=== PATIENT | male | born 1940 | race Caucasian/White ===

== ENCOUNTER 2016-08-21 02:31 | Inpatient (IN) | payer MEDICARE ==
[2016-08-21] VITALS (11 sets, daily range): BP systolic 117–141; BP diastolic 71–82; PULSE 118–136; RESP 14–22; O2SAT 95–98
[~2016-08-21] VITALS: Ht 170.2 cm; Wt 85.2 kg
[2016-08-21] MEDS ORDERED: Alum-Mag Hydrox-Simeth 30 mL Suspension PO PRN (04:20)
[2016-08-21] MEDS ORDERED: Glucose 40% Oral Gel 15 Gm Tube PO PRN (04:20)
[2016-08-21] MEDS ORDERED: Polyethylene Glycol (PEG) 17 Gm Powder PO PRN (04:20)
--- NOTE | 2016-08-21 04:34 | PCM.HPMED ---
Subjective Date of Service Aug 21, 2016 Primary Provider: Admitting Physician: Rodrigo Patterson MD Primary Care Physician: Harpreet Attending Physician: Rodrigo Patterson MD Admit Status: From the Emergency Department Chief Complaint: Presyncope History of Present Illness: This is a 76-year-old male with past history significant for coronary artery disease status post CABG in 1997, hyperlipidemia, hypertension, myelodysplastic syndrome with planned start date of chemo on August 27, and diabetes mellitus type II who presents as a direct transfer from [facility] after a presyncopal episode.. The patient states that this evening he was visiting his who was admitted to [facility]. While sitting in a chair he began to feel lightheaded, and became diaphoretic. He states this is the second times this has occurred over the last 2 weeks. ER notes states that his eyes rolled back in his head and he had a presyncopal event. Associated symptoms: Nausea. He denies any loss of consciousness. He denies any chest pain or pressure, shortness of breath, vomiting, dysuria, hematuria, increased urinary frequency, Initial vitals at [facility] BP 151/58, heart rate 118, respiratory rate 22, satting 94% on room air, temperature 98.3 Fahrenheit. Initial laboratory values from [facility]: WBC 5.3, hemoglobin 8.2 , hematocrit 26.4, MCV 72. D-dimer was 10.88. BNP 322. Glucose 140, BUN 20, creatinine 1.3, sodium 136, potassium 4.1, chloride 99, carbon dioxide 21, calcium 8.6, total protein 9.8, albumin 2.7, total bilirubin 0.6, alkaline phosphatase 51, AST 28, ALT 22, CPK 331, magnesium 1.6, CK-MB 1.7, troponin I 1.13 with a normal reference range of 0.00-1.5 . An ABG was performed at [facility] due to transient hypoxia which showed a pH of 7.42, PCO2 of 30.5, PO2 of 135, HCO3 of 19.9. Urinalysis showed positive nitrites, 2 + blood, positive leukocyte esterase, WBCs of 15-25, and many bacteria. EKG showed sinus tachycardia with rate of 115, possible left atrial enlargement , possible inferior infarct of indeterminate age, and ST depression in leads V3 , V4, V5, and V6. Chest x-ray was described as no acute disease. CT angio was performed and showed no pulmonary embolus. The images are not available for review at this time and verbal reports of these images were provided to me by the emergency department physician as the written reports were not included in the chart received from [facility]. Repeat laboratory testing at [facility] showed a hemoglobin of 7.0 , hematocrit of 24.7, platelet count of 23. Lactic acid of 3.7. Magnesium of 1.5. Troponin of 0.037. In the ED at [facility] he was provided with a bolus of normal saline and given 1 g of ceftriaxone for a urinary tract infection. Review of Systems: A comprehensive review of systems was conducted with the patient and found to be negative except as above in the History of Present Illness. Allergies Coded Allergies: No Known Allergies (Unverified , 08/21/16) verified Home Medications Aspirin Atorvastatin Levothyroxine Metformin Metoprolol Patient's pharmacy will need to be contacted in the morning for medication list. PMH Diabetes mellitus type II Hyperlipidemia Hypertension Hypothyroidism Coronary artery disease status post CABG Mild dysplastic syndrome starting chemotherapy on August 27 Previous myocardial infarction Surgical History Coronary artery bypass graft Family History Father: Coronary artery disease. Mother: Coronary artery disease. Social History Hx Alcohol Use: No Hx Substance Use: No Hx Tobacco Use: No (quit 45 years ago) Exam Vital Signs Vital Sign - Last Date Time Temp Pulse Resp B/P Pulse Ox O2 Delivery O2 Flow Rate FiO2 08/21/16 03:50 36.6 136 22 117/76 97 Nasal Cannula 2.00 Exam General: No acute distress, appropriately interactive HEENT: Normocephalic, atraumatic. External ears without defect. Pupils equal, round, and reactive to light and accommodation. Anicteric sclerae, moist conjunctivae, and no lid lag. Oropharynx free of erythema and cobble stoning with moist mucosa. Neck: Supple with full range of motion. No jugular venous distension. No bruits. No lymphadenopathy or thyromegaly. Cardiovascular: Regular rate and rhythm with no murmurs, rubs, or gallops appreciated Pulmonary: Clear to auscultation bilaterally with no crackles, wheezes, or rhonchi. Normal respiratory effort with no use of accessory muscles. Abdomen: Bowel tones present. Soft, nontender, nondistended. No hepatosplenomegaly or masses appreciated. Extremities: Trace edema of lower extremity bilaterally. Skin: Normal temperature, turgor, and texture; no rash, ulcers, or subcutaneous nodules appreciated. Neurological: Cranial nerves grossly intact. Normal muscle strength, tone, and bulk. Reflexes, coordination, and sensory function within normal limits. No known gait impairment. Normal heel to paul test bilaterally. No upper or lower extremity drift. Psychiatric: Normal mood and affect. Alert and oriented to person, place, and time. Assessment & Plan This is a 76-year-old male with past medical history significant for coronary disease status post CABG, hypertension, hyperlipidemia, myelodysplastic syndrome , and diabetes mellitus type II who initially presented for a presyncopal event and indeterminate troponins. He also was experiencing some shortness of breath and required oxygen by nasal cannula while at [facility]. He was subsequently found to have a hemoglobin of 7 on repeat laboratory tests in our hospital and blood transfusion is now underway. The severe anemia is likely secondary to the myelodysplastic syndrome. The patient also has a urinalysis that indicates a urinary tract infection and meets sepsis criteria with a lactic acid of 3.7 and procalcitonin of .44. He is now status post 2 L normal saline. It should be noted, that originally the patient was signed out to our team due to indeterminate troponins with an EKG that showed ST depression in V3 , V4, V5, and V6. Sepsis, present on admission, ongoing: -Sepsis criteria met with respiratory rate of 22, heart rate of 118, PCO2 < 35, with source of urine. -Patient was given ceftriaxone at [facility]. From my review of the records blood cultures were not drawn before this was given. -Blood cultures ordered (dose of Ceftriaxone given at [facility] before cultures were drawn). -Lactic acid 3.7. A second liter of NS will be provided. Urinary tract infection, present on admission, ongoing: -Patient describes no symptoms of urinary tract infection. He denies any dysuria, hematuria, increased urinary frequency. -Urinalysis showed positive nitrites, 2+ blood, positive leukocyte esterase, WBCs of 15-25, and many bacteria. -Day team will need to follow-up with urine culture at [facility]. Another urinalysis was ordered here but this is after Ceftriaxone given. -Will continue ceftriaxone. Severe microcytic anemia, present on admission: -On admit hemoglobin 7, hematocrit 24.7, MCV 77.4. -Likely secondary to myelodysplastic syndrome. -Two units will be transfused. Elevated troponins, present on admission, ongoing: -Troponin on admit .037. -Continue to trend troponins x3. -Dr. Merino of cardiology was contacted last evening concerning inderminate troponins at [facility]. -Consider cardiology consult. Presyncopal event, present on admission, stable: -Uncertain etiology. Differential includes hypoglycemia, electronic disturbance , orthostatic hypotension, cardiogenic including arrhythmia and ischemia, CVA, pulmonary embolus, severe anemia/hypovolemia. CT angiogram at [facility] was reported as having no pulmonary embolus by the emergency room physician. -Will trend troponins. Dr. Merino cardiology was contacted and agreed with trending. -Patient on telemetry -Echocardiogram ordered -Orthostatics pending. -Nursing to complete q2h neuro checks. -Day team can consider brain imaging including MRI. Myelodysplastic syndrome, present on admission: -Patients oncologist is at [facility]. -Consider oncology referral. Hypomagnesemia, present on admission, ongoing: -Mag on admit 1.5. -Mag replacement provided. Diabetes mellitus type II, present on admission: -A1c is pending -Humalog low-dose correctional scale -Continue metformin Hypertension, present on admission: -On admit at scheduled for a hospital blood pressure was 117/76. -Continue metoprolol tartrate. Hyperlipidemia, present on admission: -Continue atorvastatin. Hypothyroidism, present on admission: -TSH and free T4 pending DVT prophylaxis with heparin. Patient is admitted under inpatient status with expected length of stay greater than 2 midnights due to severity of presenting symptoms, risk of adverse event, and complexity of treatment plan. Pain Evaluation: Adequate Pain Control Resuscitation Status: DNR/DNI:Do Not Resuscitate/Intubate Attending Statement The patient was seen and examined together with Dr. Mascorro on 08/21 and I agree with the history, exam and plan as outlined in the note above. Mundo Mascorro DO Aug 21, 2016 04:34 Rodrigo Patterson MD Aug 21, 2016 19:12
[2016-08-21] MEDS ORDERED: Dextrose 10% 250 ML IV PRN (04:35)
[2016-08-21 05:11] LABS: BASOPHILS % (AUTO) 0.9 % (0-3); EOSINOPHILS % (AUTO) 0.2 % (0-5); MONOCYTES % (AUTO) 23.6 % (4-12); Mean Corpuscular Hemoglobin 21.9 pg (27.0-35.0); Mean Corpuscular Volume 77.4 fL (81-100); NEUTROPHILS % (AUTO) 31.6 % (40-74)
[2016-08-21 05:42] LABS: Platelet Count 23 bil/L (150-400)
[2016-08-21 06:00] LABS: Magnesium 1.5 mg/dL (1.6-2.6)
[2016-08-21] MEDS ORDERED: 0.9% Sodium Chloride 1,000 ML IV ONE (06:00)
[2016-08-21 06:01] LABS: TROPONIN T 0.037 ug/L (0.0-0.011)
[2016-08-21] MEDS ORDERED: Magnesium Sulf 2 Gm/50mL Water 2 GM in IV Premix 1 EACH IV ONE (06:20)
[2016-08-21 06:29] LABS: APPEARANCE,URINE CLEAR (CLEAR,HAZY); COLOR,URINE YELLOW (YELLOW); OCCULT BLOOD,URINE MODERATE (NEGATIVE); PH,URINE 5.5 (5.0-8.0); UROBILINOGEN,URINE NORMAL (NORMAL)
--- NOTE | 2016-08-21 06:46 | NUR ---
admit from [facility], am labs pt received from [facility] at 0345, admit info done per pt hx info, pt a/o times three, reji, neuros wnl, pt voiding sml amount of yellow uop per f/c frequently, pt getting sob with exertion when having to sit at side of bed to void, urine spec sent to lab, pt had medium size bm upon admit, bm was light brown, abd round/snt, denies n/v, hyper active bt's, tele- st hr 130's upon admit, 120's at rest, bp stable, afebrile, md aware pt tachycardic, ls- clear/sl decreased, 2 liters o2 on per nc, sats upper 90's, sob with exertion, resident in to see pt and do admit, resident aware of pt assessment/tele/pt's history per admit info/am lab results, see orders, ivf one liter ns bolus given, mg rider started, lab has drawn for t/c two units rbc's, signed blood consent on chart, pt aware to have family bring in his cpap machine and med list from home, pt states he uses [facility] in [place] for his pharmacy, note left with UA to contact on day shift, pt spoke with resident about being a dnr/dni for resuscitation order, see assessment and admit charting, report to day shift rn for hh, 2 units of blood to be given, post transfusion labs, and f/u lactic levels after ns bolus given, Addendum: 08/21/16 at 0726 by GABINO KENNEY RN lab still working on preparing two units of blood,
[2016-08-21] MEDS ORDERED: LEVO25TA73 PO (07:28)
[2016-08-21] MEDS ORDERED: METO25TA6 PO (07:28)
[2016-08-21] MEDS ORDERED: ASPI-973 PO (07:34)
[2016-08-21] MEDS ORDERED: METF500T4 PO (07:34)
[2016-08-21] MEDS ORDERED: ATRV10T PO (07:34)
[2016-08-21] MEDS: Insulin LISPRO 300 Unit/3 mL Inj SUBQ SCH ×4 (08:00→21:50)
[2016-08-21] MEDS: 0.9% Sodium Chloride 250 ML IV SCH (08:21)
[2016-08-21] MEDS: Heparin 5,000 Unit/mL Inj SUBQ SCH ×2 (08:30→16:30)
--- NOTE | 2016-08-21 11:07 | DRSVH ---
[facility] [address] [place] [address] Echocardiogram Report Name: HARRIETT MAYBERRY KStudy Date : 08/21/2016 Height: 6 7 in Hospital Exam Location: [facility] Weight: 1 90 lb Gender: Male BSA: 2.0 m2 : 1940 Age: 76 yrs BP: 117/7 6 mmHg Reason For Study: Pre-Syncope Ordering Physician: HOSPITALIST [facility] Performed By: Madhu Martinez Referring Physician: WILLIAM SOTOMAYOR Interpretation Summary The left ventricle is normal in size. The ejection fraction is estimated to be 40-45%. There is mild global hypokinesis of the left ventricle. There is basal inferior wall severe hypokinesis. There is basal posterolateral wall hypokinesis. The right ventricle grossly appears normal in size with probable normal systolic function. There is moderate mitral regurgitation. The ascending aorta is mildly enlarged. The patient was in sinus tachycardia with heart rates between 115-130 bpm during the exam. Procedure: A two-dimensional transthoracic echocardiogram with color flow and Doppler was performed. The study quality was technically adequate. There is no prior echocardiogram noted for this patient. A contrast injection of Definity was performed to improve assessment of LV function. The patient was in sinus tachycardia with heart rates between 115-130 bpm during the exam. Left Ventricle: The left ventricle is normal in size. There is normal left ventricular wall thickness. There is no thrombus. The ejection fraction is estimated to be 40-45%. There is mild global hypokinesis of the left ventricle. There is basal inferior wall severe hypokinesis. There is basal posterolateral wall hypokinesis. Diastolic function could not be accurately assessed due to tachycardia. Right Ventricle: The right ventricle grossly appears normal in size with probable normal systolic function. Atria: Borderline left atrial enlargement. Right atrial size is normal. The interatrial septum is intact with no evidence for an atrial septal defect. Mitral Valve: The mitral valve leaflets appear borderline thickened, but open well. The mitral valve leaflets are mildly calcified. There is mild mitral annular calcification. The tip of the mitral leaflet is calcified. There is moderate mitral regurgitation. Aortic Valve: The aortic valve is trileaflet. There is mild aortic valve sclerosis. There is no aortic valve stenosis. No aortic regurgitation is present. Tricuspid Valve: The tricuspid valve is not well visualized, but is grossly normal. There is trace tricuspid regurgitation. Pulmonary artery pressures cannot be estimated because of the lack of a measurable TR jet velocity. Pulmonic Valve: The pulmonic valve leaflets are thin and pliable; valve motion is normal. There is trace pulmonic regurgitation. Great Vessels: The aortic root is normal size. The ascending aorta is mildly enlarged. The pulmonary artery is normal size. The IVC is of normal diameter and collapses greater than 50% with a sniff. This suggests a low right atrial pressure of 3 mm Hg. Pericardium/ Pleura There is no pericardial effusion. There is an anterior echo-free space consistent with a fat pad. There is no pleural effusion. MMode/2D Measurements & Calculations LVIDd: 5.0 cm RA long axis: 4.6 cm LVOT diam: 2.0 cm LVIDs: 4.2 cm LA A2 area: 19.0 cm AoV Opening FS: 15.1 % LA A4 area: 22.8 cm RA area: 11.2 cm EPSS: 1.0 cm LA length (vol) RA vol: 23.2 ml Ao root diam IVSd: 0.85 cm RA : 11.7 ml/m2 LVPWd: 1.0 cm LA vol: 62.8 ml asc Aorta Diam LA vol index Ao Arch Diam (Prox Trans): 2.4 cm IVC diam: 1.7 cm EDV(MOD-sp2) LV nick. diameter/BSA LV sys. diameter/BSA (cm/m^2): 2.5 (cm/m^2): 2.1 ESV(MOD-sp2) EF(MOD-sp2) Doppler Measurements & Calculations Ao V2 max Lat Peak E' Farzad PA V2 max : 187.1 cm/sec MVA(VTI): 3.9 cm2: 10.0 cm/sec : 114.2 cm/sec Ao max P.0 mmHg PA mean PG Ao mean P.7 mmHg : 3.2 mmHg LVOT Max Farzad : 159.5 cm/sec PALLAVI(I,D): 2.8 cm sev ratio: 0.89 MV V2 mean Ao V2 mean LV V1 max PG PA V2 mean : 105.3 cm/sec : 142.4 cm/sec : 85.2 cm/sec MV mean P.7 mmHg Ao V2 VTI LV V1 VTI: 24.9 cm PA pr(Accel) MV V2 VTI: 20.1 cm : 54.1 mmHg PALLAVI(V,D): 2.7 cm2 PALLAVI indexed to BSA (cm^2/m^2): 1.4 Reading Physician:HIWOT
[2016-08-21] MEDS ORDERED: BENZ100C8 PO (11:48)
[2016-08-21] MEDS ORDERED: AMOX500C2 PO (12:01)
[2016-08-21] MEDS ORDERED: DOXY100C2 PO (12:01)
[2016-08-21] MEDS ORDERED: OMEP20CA11 PO (12:01)
[2016-08-21] MEDS ORDERED: RANI150C4 PO (12:06)
[2016-08-21] MEDS ORDERED: AMOX-366 PO (12:06)
[2016-08-21] MEDS ORDERED: HYDR-4003 PO (12:06)
[2016-08-21] MEDS ORDERED: TAMS0.4C98 PO (12:06)
[2016-08-21] MEDS ORDERED: AMLO10TA3 PO (12:06)
--- NOTE | 2016-08-21 13:30 | PCM.PNMED ---
Subjective Date of Service Aug 21, 2016 Subjective He is comfortable, denies chest pain or dyspnea. No nausea. No recent rectal bleeding. He is currently receiving a 2 unit blood transfusion. No overnight events. Patient's ECG is notable for lateral ST depressions. Exam Vital Signs Vital Sign - Last Date Time Temp Pulse Resp B/P Pulse Ox O2 Delivery O2 Flow Rate FiO2 08/21/16 13:07 36.9 08/21/16 12:22 128 18 141/82 96 08/21/16 08:56 Nasal Cannula 2.00 Intake and Output 08/20/16 08/20/16 08/21/16 Cumulative From/Thru 15:00 23:00 07:00 08/21/16 03:45 - 08/21/16 06:29 Intake Total 340 ml 340 ml Output Total 275 ml 275 ml Balance 65 ml 65 ml Intake Oral 240 ml 240 ml IV Total 100 ml 100 ml Output Urine Total 275 ml 275 ml # Bowel Movements 1 1 Exam Alert and oriented -3, no distress. Fluent speech Anicteric sclera. Lungs are clear with normal rate and effort Heart is regular without murmur gallop or rub Abdomen soft nontender, flat Extremities are free of edema. Skin is free of rash or lesions. IVs and Medications Medications Reviewed: Medications were reviewed in detail Lab and Diagnostics Result Diagram: 08/21/16 0625 08/21/16 0500 Assessment & Plan This is a 76-year-old male with past medical history significant for coronary disease status post CABG, hypertension, hyperlipidemia, myelodysplastic syndrome , and diabetes mellitus type II who initially presented for a presyncopal event and indeterminate troponins. He also was experiencing some shortness of breath and required oxygen by nasal cannula while at [facility]. He was subsequently found to have a hemoglobin of 7 on repeat laboratory tests in our hospital and blood transfusion is now underway. The severe anemia is likely secondary to the myelodysplastic syndrome. The patient also has a urinalysis that indicates a urinary tract infection and meets sepsis criteria with a lactic acid of 3.7 and procalcitonin of .44. He is now status post 2 L normal saline. It should be noted, that originally the patient was signed out to our team due to indeterminate troponins with an EKG that showed ST depression in V3 , V4, V5, and V6. Sepsis, present on admission, ongoing. And improving. Source is urinary tract infection. -Sepsis criteria met with respiratory rate of 22, heart rate of 118, PCO2 < 35, with source of urine. -Patient was given ceftriaxone at [facility]. From my review of the records blood cultures were not drawn before this was given. -Blood cultures ordered (dose of Ceftriaxone given at [facility] before cultures were drawn). -Lactic acid 3.7. A second liter of NS will be provided. Urinary tract infection, present on admission, ongoing: -Patient describes no symptoms of urinary tract infection. He denies any dysuria, hematuria, increased urinary frequency. -Urinalysis showed positive nitrites, 2+ blood, positive leukocyte esterase, WBCs of 15-25, and many bacteria. -Day team will need to follow-up with urine culture at [facility]. Another urinalysis was ordered here but this is after Ceftriaxone given. -Will continue ceftriaxone. Severe microcytic anemia, present on admission: Presumed secondary to MDS, no evidence of GI bleed -On admit hemoglobin 7, hematocrit 24.7, MCV 77.4. -Likely secondary to myelodysplastic syndrome. -Two units will be transfused. Elevated troponins, present on admission, ongoing: This could represent demand ischemia. -Troponin on admit .037. -Continue to trend troponins x3. -Dr. Merino of cardiology was contacted last evening concerning inderminate troponins at [facility]. -Consider cardiology consult, will continue aspirin and low-dose beta estuardo. No heparin drip given thrombocytopenia. Chronic thrombocytopenia, POA. We will follow carefully and avoid contraindicated medications.. Presyncopal event, present on admission, stable: This is likely related to anemia. -Uncertain etiology. Differential includes hypoglycemia, electronic disturbance , orthostatic hypotension, cardiogenic including arrhythmia and ischemia, CVA, pulmonary embolus, severe anemia/hypovolemia. CT angiogram at [facility] was reported as having no pulmonary embolus by the emergency room physician. -Will trend troponins. Dr. Merino cardiology was contacted and agreed with trending. -Patient on telemetry -Echocardiogram ordered -Orthostatics pending. -Nursing to complete q2h neuro checks. -Day team can consider brain imaging including MRI. Myelodysplastic syndrome, present on admission: Stable. -Patients oncologist is at [facility]. -Consider oncology referral. Hypomagnesemia, present on admission, repleted.: -Mag on admit 1.5. -Mag replacement provided. Diabetes mellitus type II, present on admission: -A1c is pending -Humalog low-dose correctional scale -Discontinue metformin and use Lantus and correctional lispro Hypertension, present on admission: This is stable. -On admit at scheduled for a hospital blood pressure was 117/76. -Continue metoprolol tartrate. Hyperlipidemia, present on admission: Stable. -Continue atorvastatin. Hypothyroidism, present on admission: Stable. -TSH and free T4 pending DVT prophylaxis with heparin. Patient is admitted under inpatient status with expected length of stay greater than 2 midnights due to severity of presenting symptoms, risk of adverse event, and complexity of treatment plan. Patient is not a candidate for heparin or PCI given profound thrombocytopenia. Will attempt to maximaize medical therapy without causing harm , including maintaining hct over 37. Resuscitation Status: DNR/DNI:Do Not Resuscitate/Intubate Judd Gee MD Aug 21, 2016 13:30
--- NOTE | 2016-08-21 14:34 | NUR ---
Case Management: IMM given and explained to pt. Loni HADLEYRN
[2016-08-21] MEDS: cefTRIAXone Inj 1,000 MG in Dextrose 5% Minibag Plus 50 ML IV SCH (16:15)
[2016-08-21] MEDS ORDERED: cefTRIAXone Inj 1,000 MG in Dextrose 5% Minibag Plus 50 ML IV SCH (18:00)
--- NOTE | 2016-08-21 18:46 | NUR ---
Pain Pt complaining of chest pain at the beginning of the shift. He reported it as "dull pressure" on the L side of his chest "3/10" in intensity. He reported it did not radiate. No diaphoresis. Denied nausea. EKG was ordered. MD was notified of results and symptoms. PO aspirin given x1. Pt reported chest pain resolved about 15 mins after onset. He denied chest pain for the remainder of the shift. He complained of a headache and was given IV morphine x1, pt only reported short term results from that and then his headache came back "5/10". Declined to take hydrocodone/acetaminophen. Continue to monitor.
[2016-08-21] MEDS: 0.9% Sodium Chloride 1,000 ML IV SCH (20:16)
[2016-08-22] VITALS (11 sets, daily range): BP systolic 108–141; BP diastolic 66–89; PULSE 92–144; RESP 18–30; O2SAT 95–96
[2016-08-22] MEDS ORDERED: Heparin 5,000 Unit/mL Inj SUBQ SCH (00:30)
[2016-08-22 05:35] LABS: Mean Corpuscular Hemoglobin 24.2 pg (27.0-35.0); Mean Corpuscular Volume 77.6 fL (81-100)
[2016-08-22] MEDS: 0.9% Sodium Chloride 250 ML IV SCH (06:05)
[2016-08-22] MEDS: 0.9% Sodium Chloride 1,000 ML IV SCH (06:31)
--- NOTE | 2016-08-22 06:44 | NUR ---
Headache Pt c/o consistent and persistent headache pain up to 6/10 pain. Medicated Q4 with morphine. Dr Patterson made aware, additional orders received for tylenol. administered as well. Headache continues each time medication wears off per pt.
[2016-08-22] MEDS: Insulin LISPRO 300 Unit/3 mL Inj SUBQ SCH ×4 (07:45→20:17)
[2016-08-22] MEDS: cefTRIAXone Inj 1,000 MG in Dextrose 5% Minibag Plus 50 ML IV SCH (09:00)
--- NOTE | 2016-08-22 09:04 | PCM.PNMED ---
Subjective Date of Service Aug 22, 2016 Subjective Patient denies any chest pain. Intermittent headache which is chronic. Denies dyspnea but has some dyspnea with speaking. He denies orthopnea or pedal edema. No abdominal pain, nausea or diarrhea. No overnight events noted. He remains in sinus tachycardia 1:30. Exam Vital Signs Vital Sign - Last Date Time Temp Pulse Resp B/P Pulse Ox O2 Delivery O2 Flow Rate FiO2 08/22/16 04:26 36.9 92 20 109/76 95 CPAP 08/21/16 20:11 2.00 Intake and Output 08/21/16 08/21/16 08/22/16 Cumulative From/Thru 15:00 23:00 07:00 08/21/16 03:45 - 08/22/16 06:33 Intake Total 659 ml 1674 ml 1628 ml 4301 ml Output Total 1850 ml 1350 ml 3475 ml Balance 659 ml -176 ml 278 ml 826 ml Intake Oral 880 ml 600 ml 1720 ml IV Total 61 ml 794 ml 1028 ml 1983 ml Packed Cells 598 ml 598 ml Output Urine Total 1850 ml 1350 ml 3475 ml # Bowel Movements 1 2 Exam Alert and oriented -3, no distress. Fluent speech, dyspneic with one sentence speaking Anicteric sclera. Lungs are clear with normal rate and effort Heart is regular without murmur gallop or rub, tachycardic Abdomen soft nontender, flat Extremities are free of edema. Skin is free of rash or lesions. Common no ecchymosis or petechiae IVs and Medications Medications Reviewed: Medications were reviewed in detail Lab and Diagnostics Result Diagram: 08/22/1643908/22/16439 Assessment & Plan This is a 76-year-old male with past medical history significant for coronary disease status post CABG, hypertension, hyperlipidemia, myelodysplastic syndrome , and diabetes mellitus type II who initially presented for a presyncopal event and indeterminate troponins. He also was experiencing some shortness of breath and required oxygen by nasal cannula while at [facility]. He was subsequently found to have a hemoglobin of 7 on repeat laboratory tests in our hospital and blood transfusion is now underway. The severe anemia is likely secondary to the myelodysplastic syndrome. The patient also has a urinalysis that indicates a urinary tract infection and meets sepsis criteria with a lactic acid of 3.7 and procalcitonin of .44. He is now status post 2 L normal saline. It should be noted, that originally the patient was signed out to our team due to indeterminate troponins with an EKG that showed ST depression in V3 , V4, V5, and V6. #. Sepsis, present on admission, improved. Source is possible UTI. Culture is pending. Plan is to continue ceftriaxone. Normal saline as patient has chronic systolic heart failure. #. Urinary tract infection, present on admission, improved. Cultures are negative his initial cultures are at [facility] will obtain his today and continue ceftriaxone. #. Probable acute on chronic systolic heart failure secondary to ischemic cardiomyopathy, new. The plan is to stop saline and give Lasix 20 IV 1 and continue medical therapy. #. Known coronary artery disease, POA. History of CABG. The patient will continue medical management as outlined above. $. Severe microcytic anemia, present on admission: Presumed secondary to MDS, no evidence of GI bleed -On admit hemoglobin 7, hematocrit 24.7, MCV 77.4. -Likely secondary to myelodysplastic syndrome. -Two units were transfused, hematocrit stable at 30. We will follow clinically. #. NSTEMI, present on admission, ongoing: Stable. The patient is doing well clinically. He does have a mild bump in his troponin. The patient is not really a candidate for PCI or upper given his profound thrombocytopenia. We will continue basic medical management. We will uptitrate beta blockers as able continue antiplatelet agents, aspirin atorvastatin and add nitrates if needed. #. Chronic thrombocytopenia, POA. We will follow carefully and avoid contraindicated medications.. Transfusion with platelets all when necessary for bleeding. Anticipate no proceduresin our conversation today of the risks and benefits of any invasive procedures given his thrombocytopenia. #. Presyncopal event, present on admission, resolved with transfusion #. Myelodysplastic syndrome, present on admission: Stable. -Patients oncologist is at [facility]. -The patient has a plan for initiation of chemotherapy in mid August. He understands the prognosis of 1-3 years based on his conversations with oncology today. Hypomagnesemia, present on admission, resolved.: Diabetes mellitus type II, present on admission: Controlled -A1c is pending -Humalog low-dose correctional scale -Discontinue metformin and use Lantus and correctional lispro Hypertension, present on admission: This is stable. Controlled -On admit at scheduled for a hospital blood pressure was 117/76. -Continue metoprolol tartrate. Hyperlipidemia, present on admission: Stable. -Continue atorvastatin. Hypothyroidism, present on admission: Stable. -TSH and free T4 pending DVT prophylaxis with heparin. Patient is admitted under inpatient status with expected length of stay greater than 2 midnights due to severity of presenting symptoms, risk of adverse event, and complexity of treatment plan. Patient is not a candidate for heparin or PCI given profound thrombocytopenia. Will attempt to maximaize medical therapy without causing harm , including maintaining hct over 37. Resuscitation Status: DNR/DNI:Do Not Resuscitate/Intubate Judd Gee MD Aug 22, 2016 09:04
--- NOTE | 2016-08-22 09:05 | NUR ---
SOB Pt denies SOB. Tachypneic after speaking short sentences. RR 18, increases after talking to RR 30. MD aware. Care continues.
--- NOTE | 2016-08-22 09:38 | NUR ---
Social Work: Initial Assessment Data: Pt is a 76 y/o male admitted for symptomatic low BP. Pt's PCP is not listed, pt's insurance is [facility] Medicare Complete [employer]. EMR reviewed. Readmit score is 3. BALL MILL MIXER met with pt at bedside, role explained. Pt states he lives in [place] with his spouse in a single story home where he uses no DME. Pt states he drives, has no hx of HH or SNF, no LTC or VA benefits, and is not a caregiver. Pt states he anticipates going home at d/c via POV with his son or other family member if needed. BALL MILL MIXER will continue to follow for possible d/c planning needs. Assessment: Pt who is independent at baseline. Plan: Pt will likely d/c home when medically stable. Pt states he anticipates going home at d/c via POV with his son or other family member if needed. BALL MILL MIXER will continue to follow for possible d/c planning needs. TRISTON Butt Addendum: 08/22/16 at 0941 by [employer] Amended: Links added.
[2016-08-22] MEDS: Furosemide 10 mg/mL 2 mL Inj IVPUSH SCH (10:44)
[2016-08-22] MEDS: Ondansetron 2 mg/mL 2 mL Inj IVPUSH PRN ×2 (11:13→18:04)
--- NOTE | 2016-08-22 11:31 | NUR ---
Tachy/shaking/nausea Per COLDFUSION pt shaking at approximately 1030, Temp WNL, provided warm blanket. Per Tele 1030 HR 140, called MD. Pt vomiting at 1100, administered 4 mg Zofran, tachypneic RR 30. VS BP 141/89 P 144 T 36.8 RR 30 SPO2 95%. Headache 5/10 pain, administered 2 mg Morphine. MD aware. Recheck BP 136/78 P 142. Repositioned pt. provided cool washcloth. Care continues.
--- NOTE | 2016-08-22 14:37 | DRSVH ---
PROCEDURE: CT BRAIN WITHOUT CONTRAST ([id number]) INDICATIONS: headache TECHNIQUE: Noncontrast 4.5 mm thick angled axial sections acquired from the foramen magnum to the vertex, with c oronal reformats. COMPARISON: None. FINDINGS: Image quality: Excellent. CSF spaces: Basal cisterns are patent. No extra-axial fluid collections. The ventricles are symmet basli in size and shape. Brain: No intracranial bleeds or masses. There is cerebral volume loss for age, with resultant vent ricular and sulcal prominence. There are periventricular and deep white matter chronic small vessel ischemic changes. There is intracranial internal carotid artery atherosclerosis. Skull and face: Calvarium and visualized facial bones appear intact, without suspicious lesions. Sinuses: Visualized sinuses and mastoids are clear. IMPRESSION: No acute intracranial abnormality. Dictated by: Ml Oden M.D. on 08/22/2016 at 14:34 Approved by: Ml Oden M.D. on 08/22/2016 at 14:35
--- NOTE | 2016-08-22 16:07 | NUR ---
Headache Pt states 7/10 SIMPSON, states it feels like someone hit him over the head with a sledge hammer. Administered 2 Tylenol 650 mg. Care continues.
[2016-08-22] MEDS ORDERED: MeTOProlol 1 mg/mL 5 mL Inj IVPUSH ONE (19:35)
--- NOTE | 2016-08-22 19:35 | NUR ---
Afib Pt converted to Afib at 1908. Pt denies symptoms, EKG obtained, shows Afib with rate of 128. Tele shows rate 130-140. BP stable at 108/69. Pt reports one instance of Afib history that self corrected. Page to MD, orders received. Continuing to monitor. Addendum: 08/22/16 at 2022 by RACHEL WAN RN IV metoprolol given, rate reduced to 110's, still Afib, BP stable at 109/69.
[2016-08-23] VITALS (9 sets, daily range): BP systolic 114–158; BP diastolic 70–84; PULSE 108–145; RESP 18–27; O2SAT 93–98
[2016-08-23] MEDS ORDERED: MeTOProlol 1 mg/mL 5 mL Inj IV ONE (00:45)
[2016-08-23] MEDS: Insulin LISPRO 300 Unit/3 mL Inj SUBQ SCH ×4 (08:00→21:03)
--- NOTE | 2016-08-23 08:00 | NUR ---
Afib/SOB Pt denies chest pain, states at home in Afib he felt heart racing, denies feeling of heart racing. Denies SOB, pt RR rate increasing to 30. Asking for heat to be turned down, stated room too hot last night. Positioned pt HOB 45 degrees, provided NC 3 L for comfort sPO2 97%. Care continues.
[2016-08-23] MEDS: cefTRIAXone Inj 1,000 MG in Dextrose 5% Minibag Plus 50 ML IV SCH (08:08)
[2016-08-23] MEDS: Furosemide 10 mg/mL 2 mL Inj IVPUSH SCH (08:10)
[2016-08-23 10:45] LABS: Mean Corpuscular Volume 77.1 fL (81-100)
[2016-08-23 11:19] LABS: TROPONIN T 0.184 ug/L (0.0-0.011)
[2016-08-23] MEDS ORDERED: Furosemide 10 mg/mL 4 mL Inj IVPUSH ONE (11:55)
--- NOTE | 2016-08-23 12:00 | PCM.PNMED ---
Subjective Date of Service Aug 23, 2016 Subjective He feels a little fatigued. He is now in A. fib as of this morning with RVR but really does not fly palpitations. No chest pain. His troponins are still elevated. He denies any nausea or diaphoresis. No abdominal pain. No diarrhea. No overnight events Exam Vital Signs Vital Sign - Last Date Time Temp Pulse Resp B/P Pulse Ox O2 Delivery O2 Flow Rate FiO2 08/23/16 08:00 124 08/23/16 07:50 37.2 18 128/84 97 Room Air 08/21/16 20:11 2.00 Intake and Output 08/22/16 08/22/16 08/23/16 Cumulative From/Thru 15:00 23:00 07:00 08/21/16 03:45 - 08/23/16 06:20 Intake Total 114 ml 1200 ml 940 ml 6555 ml Output Total 1425 ml 1000 ml 5900 ml Balance 114 ml -225 ml -60 ml 655 ml Intake Oral 1200 ml 940 ml 3860 ml IV Total 114 ml 2097 ml Packed Cells 598 ml Output Urine Total 1425 ml 1000 ml 5900 ml # Bowel Movements 1 3 Exam Alert and oriented -3, no distress. Fluent speech Anicteric sclera. Lungs are clear with normal rate and effort Heart is irregular and rapid. Abdomen soft nontender, flat Extremities are free of edema. Skin is free of rash or lesions. IVs and Medications Medications Reviewed: Medications were reviewed in detail Lab and Diagnostics Result Diagram: 08/22/16 0440 08/23/16 1015 Assessment & Plan This is a 76-year-old male with past medical history significant for coronary disease status post CABG, hypertension, hyperlipidemia, myelodysplastic syndrome , and diabetes mellitus type II who initially presented for a presyncopal event and indeterminate troponins. He also was experiencing some shortness of breath and required oxygen by nasal cannula while at [facility]. He was subsequently found to have a hemoglobin of 7 on repeat laboratory tests in our hospital and blood transfusion is now underway. The severe anemia is likely secondary to the myelodysplastic syndrome. The patient also has a urinalysis that indicates a urinary tract infection and meets sepsis criteria with a lactic acid of 3.7 and procalcitonin of .44. He is now status post 2 L normal saline. It should be noted, that originally the patient was signed out to our team due to indeterminate troponins with an EKG that showed ST depression in V3 , V4, V5, and V6. #. Paroxysmal A. fib with RVR this morning. New. We will use a diltiazem drip for rate control and follow clinically. #. Sepsis, present on admission, resolved. Source is possible UTI. Culture is pending. Plan is to continue ceftriaxone. #. Urinary tract infection, present on admission, improved. Cultures are negative his initial cultures are at [facility] will obtain his today and continue ceftriaxone. #. Probable acute on chronic systolic heart failure secondary to ischemic cardiomyopathy, improving. The plan will be to give him Lasix 20 mg additional today, IV. #. NSTEMI, POA. History of CABG. This continues to be an issue. He is having no symptoms but has elevated troponins. We are trying to medically manage him and avoid problems with his thrombocytopenia. He is not really a candidate for operative or dual antiplatelets. We will continue beta blockade and aspirin.. $. Severe microcytic anemia, present on admission: Presumed secondary to MDS, no evidence of GI bleed. Stable. -On admit hemoglobin 7, hematocrit 24.7, MCV 77.4. -Likely secondary to myelodysplastic syndrome. -Two units were transfused, hematocrit stable at 30. We will follow clinically. #. Chronic thrombocytopenia, POA. Stable. We will follow carefully and avoid contraindicated medications.. Transfusion with platelets all when necessary for bleeding. Anticipate no proceduresin our conversation today of the risks and benefits of any invasive procedures given his thrombocytopenia. #. Presyncopal event, present on admission, resolved with transfusion #. Myelodysplastic syndrome, present on admission: Stable. -Patients oncologist is at [facility]. -The patient has a plan for initiation of chemotherapy in mid August. He understands the prognosis of 1-3 years based on his conversations with oncology today. Hypomagnesemia, present on admission, resolved.: Diabetes mellitus type II, present on admission: Controlled -A1c is pending -Humalog low-dose correctional scale -Discontinue metformin and use Lantus and correctional lispro Hypertension, present on admission: This is stable. Controlled -On admit at scheduled for a hospital blood pressure was 117/76. -Continue metoprolol tartrate. Hyperlipidemia, present on admission: Stable. -Continue atorvastatin. Hypothyroidism, present on admission: Stable. -TSH and free T4 pending [facility] to meet with him to further address levels of goal and prognosis. Given the multiple complexities of his case and poor prognosis. DVT prophylaxis with heparin discontinued due to thrombocytopenia. Patient is admitted under inpatient status with expected length of stay greater than 2 midnights due to severity of presenting symptoms, risk of adverse event, and complexity of treatment plan. Resuscitation Status: DNR/DNI:Do Not Resuscitate/Intubate Judd Gee MD Aug 23, 2016 11:59
--- NOTE | 2016-08-23 13:18 | NUR ---
Palliative Care Palliative Care received verbal order from Dr Gee 08/23/16 to assist with goals of care. Patient is a 76 year old man who was admitted 08/21/16. Patient lives at home with his . Jacki Real () [phone] Palliative Care will likely meet with patient 08/24/16. Krystina Prado
[2016-08-23] MEDS: Diltiazem Inj 125 MG in 0.9% Sodium Chloride 100 ML, Pharmacy To Mix 1 EA IV SCH (13:26)
--- NOTE | 2016-08-23 13:43 | NUR ---
Diltiazem MP 30: BP 117/71 HR 112. At approximately 1330 starte Diltiazem drip 5 mL/hr. Denies SOB, denies chest pain. Care continues.
--- NOTE | 2016-08-23 14:41 | NUR ---
Diltiazem Increased Dilt by 2 mg. Total now 7 mL/hr. HR 121 BP 135/83. Denies chest pain and SOB. States SIMPSON. Administering 650 mg Tylenol. Care continues.
[2016-08-23] MEDS: HYDROcodone-APAP 5-325 mg Tablet PO PRN (14:47)
--- NOTE | 2016-08-23 15:14 | NUR ---
Diltiazem Increased Dilt by 3 mg. Dose now 10 mL/hr. HR 129 BP 134/83. Denies chest pain or shortness of breath. Tele informed of Dilt increase. Care continues.
--- NOTE | 2016-08-23 17:16 | NUR ---
Diltiazem Per tele pt converted to SR/ST. Titrating down Diltiazem. land survey technician notified. Care continues.
[2016-08-24] VITALS (11 sets, daily range): BP systolic 107–141; BP diastolic 72–88; PULSE 98–119; RESP 18–20; O2SAT 93–100
--- NOTE | 2016-08-24 05:17 | NUR ---
Pain Pt reports dry intermittent cough ongoing, states "When I'm coughing, sometimes I get this pressure in my head that will either stay there for a while or fade away after I finish coughing." VSS, Tylenol administered for head discomfort, no complaints throughout shift. Tele ST 100s-110s.
[2016-08-24] MEDS: Insulin LISPRO 300 Unit/3 mL Inj SUBQ SCH ×4 (08:00→22:00)
[2016-08-24] MEDS: HYDROcodone-APAP 5-325 mg Tablet PO PRN ×2 (08:41→16:09)
[2016-08-24] MEDS: Furosemide 10 mg/mL 2 mL Inj IVPUSH SCH (08:42)
[2016-08-24] MEDS: cefTRIAXone Inj 1,000 MG in Dextrose 5% Minibag Plus 50 ML IV SCH (08:54)
--- NOTE | 2016-08-24 09:04 | NUR ---
Discouraged Pt stated he is discouraged with how often urinating. States he can't sleep or eat due to the constant urination. Listened, encouraged pt. Provided wipes. Care continues.
[2016-08-24] MEDS: Diltiazem Inj 125 MG in 0.9% Sodium Chloride 100 ML, Pharmacy To Mix 1 EA IV SCH (11:55)
--- NOTE | 2016-08-24 13:04 | NUR ---
Reduced energy/cough Pt states he feels weaker than yesterday, states he is exhausted, denies SOB. Tachypneic shallow breathing. MD notified. Care continues.
--- NOTE | 2016-08-24 15:06 | DRSVH ---
PROCEDURE: X-RAY CHEST ONE VIEW, PORTABLE ([id number]) INDICATIONS: dyspnea TECHNIQUE: One view of the chest was acquired. COMPARISON: None. FINDINGS: Surgical changes and devices: Post median sternotomy. Lungs and pleura: No pleural effusions or pneumothorax. Lungs are clear. Lung volumes are low. Mediastinum: Mediastinal contours appear normal. Heart size is normal. Bones and chest wall: No suspicious bony lesions. Overlying soft tissues appear unremarkable. Roun ded subcentimeter sclerotic focus projected over the proximal humerus likely a small bone island. IMPRESSION: No acute cardiopulmonary disease. Dictated by: Joshua Mcdonald [facility] Interpreted: Arturo Eric MD on 08/24/2016 at 14:41 Approved by: Arturo Eric M.D. on 08/24/2016 at 15:04
[2016-08-24 15:07] LABS: Mean Corpuscular Hemoglobin 24.2 pg (27.0-35.0); Mean Corpuscular Volume 78.3 fL (81-100)
[2016-08-24 15:38] LABS: TROPONIN T 0.161 ug/L (0.0-0.011)
--- NOTE | 2016-08-24 16:21 | NUR ---
Social Work: Continued Discharge Planning D: Pt discussed in am rounds. Pt is not medically stable for discharge home at this time. Anticipated that pt will require hospitalization through the weekend. MD has ordered PT evaluation for the pt. Evaluation has not yet been completed. Per SOLAR PANEL INSTALLER, pt has questions about his discharge plan and requesting to speak with FOUNDER AND PRESIDENT. FOUNDER AND PRESIDENT met with pt at bedside. Sw role explained. Pt states that he has been up to the BS and to his chair for meals but has done minimal ambulation. Pt expresses that he has some concerns about discharge. FOUNDER AND PRESIDENT validated pt's concerns and informed him of possible discharge options including home health and skilled rehab if medically necessary. FOUNDER AND PRESIDENT informed pt that PT evaluation would yield discharge recommendations that the case management, PT and MD will discuss these with him once completed. Pt states he understands. Pt has been SBA to the [facility] during admission. A: Pt who is I at baseline and lives with his in [place]. P: Evolving; FOUNDER AND PRESIDENT to continue to follow pt's clinical course and assist with safe discharge planning once recs from PT are made and orders placed by . TRISTON Kuhn
--- NOTE | 2016-08-24 16:53 | PCM.PNMED ---
Subjective Date of Service Aug 24, 2016 Subjective Patient's feeling fatigued today and a little bit short of breath. He is also having a cough with deep inhalations. He denies any chest pain, palpitations or nausea. No diaphoresis. No fevers or chills. No abdominal pain. He is having ongoing intermittent bitemporal headaches since April which increase with coughing and decreased with cool + his head or rubbing his head or pain medicine. No overnight events Exam Vital Signs Vital Sign - Last Date Time Temp Pulse Resp B/P Pulse Ox O2 Delivery O2 Flow Rate FiO2 08/24/16 15:58 37.0 116 18 131/81 96 Room Air 08/23/16 16:04 2.00 Intake and Output 08/23/16 08/23/16 08/24/16 Cumulative From/Thru 15:00 23:00 07:00 08/21/16 03:45 - 08/24/16 04:30 Intake Total 1369 ml 1340 ml 9264 ml Output Total 1625 ml 1425 ml 8950 ml Balance -256 ml -85 ml 314 ml Intake Oral 1290 ml 1340 ml 6490 ml IV Total 79 ml 2176 ml Packed Cells 598 ml Output Urine Total 1625 ml 1425 ml 8950 ml # Bowel Movements 1 4 Exam Alert and oriented -3, no distress. Fluent speech. Does have some dyspnea with talking. Anicteric sclera. Lungs are clear with normal rate and effort, expiratory wheezing. Heart is regular without murmur gallop or rub Abdomen soft nontender, flat Extremities are free of edema. Skin is free of rash or lesions. IVs and Medications Medications Reviewed: Medications were reviewed in detail Lab and Diagnostics Result Diagram: 08/24/16 1440 08/24/16 1440 Assessment & Plan This is a 76-year-old male with past medical history significant for coronary disease status post CABG, hypertension, hyperlipidemia, myelodysplastic syndrome , and diabetes mellitus type II who initially presented for a presyncopal event and indeterminate troponins. He also was experiencing some shortness of breath and required oxygen by nasal cannula while at [facility]. He was subsequently found to have a hemoglobin of 7 on repeat laboratory tests in our hospital and blood transfusion is now underway. The severe anemia is likely secondary to the myelodysplastic syndrome. The patient also has a urinalysis that indicates a urinary tract infection and meets sepsis criteria with a lactic acid of 3.7 and procalcitonin of .44. He is now status post 2 L normal saline. It should be noted, that originally the patient was signed out to our team due to indeterminate troponins with an EKG that showed ST depression in V3 , V4, V5, and V6. #. Paroxysmal A. fib with RVR, resolved. The patient converted yesterday has known sinus rhythm. #. Sepsis, present on admission, resolved. Source is possible UTI. Culture from [facility] indicates Escherichia coli, sensitivity pending. Continue ceftriaxone. #. Urinary tract infection, present on admission, improved. Plan as above. #. Probable acute on chronic systolic heart failure secondary to ischemic cardiomyopathy, improving. He does have some wheezing as well. We will use albuterol nebs every 6 hours scheduled and given an additional 20 of Lasix IV. Chest x-ray today was unremarkable. #. NSTEMI, POA. History of CABG. improving. Patient's echo from the sixth reveals fairly normal function with an EF severely reduced at 45%. The patient' s speech is troponin and now this is normalizing. #. Severe microcytic anemia, present on admission: Presumed secondary to MDS, no evidence of GI bleed. Improved. Hematocrit is up to 34 today.. -On admit hemoglobin 7, hematocrit 24.7, MCV 77.4. -Likely secondary to myelodysplastic syndrome. -Two units were transfused, hematocrit stable at 30. We will follow clinically. #. Chronic thrombocytopenia, POA. Stable. Thrombocytopenia remains stable with a platelet count of 30,000 today. #. Presyncopal event, present on admission, resolved with transfusion #. Myelodysplastic syndrome, present on admission: Stable. -Patients oncologist is at [facility]. -The patient has a plan for initiation of chemotherapy in mid August. He understands the prognosis of 1-3 years based on his conversations with oncology today. Most important thing now is to expedite his chemotherapy treatment which was going to start sometime after August 27. #. Hypomagnesemia, present on admission, resolved.: #. Diabetes mellitus type II, present on admission: Controlled -A1c is pending -Humalog low-dose correctional scale -Discontinue metformin and use Lantus and correctional lispro #. Hypertension, present on admission: This is stable. Controlled -On admit at scheduled for a hospital blood pressure was 117/76. -Continue metoprolol tartrate. #. Hyperlipidemia, present on admission: Stable. -Continue atorvastatin. #. Hypothyroidism, present on admission: Stable. -TSH and free T4 pending #. Severe debilitation. POA but worsening. Physical therapy evaluation and discharge planning. He may need a transitional rehabilitation stay. DVT prophylaxis with heparin discontinued due to thrombocytopenia. Patient is admitted under inpatient status with expected length of stay greater than 2 midnights due to severity of presenting symptoms, risk of adverse event, and complexity of treatment plan. Resuscitation Status: DNR/DNI:Do Not Resuscitate/Intubate Judd Gee MD Aug 24, 2016 16:53
[2016-08-24] MEDS: Albuterol 1.25 mg/3 mL Inhalation Solution NEB SCH ×3 (17:32→23:52)
[2016-08-24] MEDS ORDERED: LEVO75TA4 PO (21:50)
[2016-08-24] MEDS ORDERED: GLIP1TAB5 PO (21:53)
[2016-08-25] VITALS (11 sets, daily range): BP systolic 115–129; BP diastolic 65–81; PULSE 74–127; RESP 16–20; O2SAT 94–99
--- NOTE | 2016-08-25 01:52 | NUR ---
activity patient interactive and conversant. denies shortness of breath rare cough. received one neb treatment. stated "it helped" now with cpap on, resting. tele SR/ST rate 100-110 care ongoing.
[2016-08-25] MEDS: HYDROcodone-APAP 5-325 mg Tablet PO PRN (04:26)
[2016-08-25] MEDS: Albuterol 1.25 mg/3 mL Inhalation Solution NEB SCH ×4 (07:55→22:29)
[2016-08-25] MEDS: Insulin LISPRO 300 Unit/3 mL Inj SUBQ SCH ×4 (09:07→21:11)
[2016-08-25] MEDS: Furosemide 10 mg/mL 2 mL Inj IVPUSH SCH (09:08)
[2016-08-25] MEDS: cefTRIAXone Inj 1,000 MG in Dextrose 5% Minibag Plus 50 ML IV SCH (09:08)
--- NOTE | 2016-08-25 10:43 | NUR ---
Evaluation completed. Please go to "Notes" then click on "Assessments and Notes" (bottom left corner of screen). Then select appropriate discipline tab on top of screen.
[2016-08-25] MEDS ORDERED: Diltiazem 5 mg/mL 5 mL Inj IVPUSH ONE (11:40)
[2016-08-25] MEDS: Diltiazem Inj 125 MG in 0.9% Sodium Chloride 100 ML, Pharmacy To Mix 1 EA IV SCH (11:55)
--- NOTE | 2016-08-25 13:23 | PCM.PNMED ---
Subjective Date of Service Aug 25, 2016 Subjective He feels better today. No shortness of breath, palpitations are not felt although he is in A. fib with RVR. No nausea. No abdominal pain or diarrhea. Minimal dyspnea. He is still wheezy and has some cough. Albuterol inhaler did help. No overnight events Exam Vital Signs Vital Sign - Last Date Time Temp Pulse Resp B/P Pulse Ox O2 Delivery O2 Flow Rate FiO2 08/25/16 11:52 36.6 127 18 129/81 97 Room Air 08/25/16 07:32 2.00 Intake and Output 08/24/16 08/24/16 08/25/16 Cumulative From/Thru 15:00 23:00 07:00 08/21/16 03:45 - 08/25/16 06:18 Intake Total 1440 ml 200 ml 14144 ml Output Total 1400 ml 525 ml 90678 ml Balance 40 ml -325 ml 29 ml Intake Oral 1440 ml 200 ml 8130 ml IV Total 2176 ml Packed Cells 598 ml Output Urine Total 1400 ml 525 ml 81147 ml # Bowel Movements 4 Exam Alert and oriented -3, no distress. Fluent speech Anicteric sclera. Lungs are clear with normal rate and effort, some expiratory wheezing Heart is regular without murmur gallop or rub Abdomen soft nontender, flat Extremities are free of edema. Skin is free of rash or lesions. IVs and Medications Medications Reviewed: Medications were reviewed in detail Lab and Diagnostics Result Diagram: 08/24/16 1440 08/24/16 1440 X-Rays, CTs and MRIs Chest x-ray from August 24 was unremarkable Assessment & Plan This is a 76-year-old male with past medical history significant for coronary disease status post CABG, hypertension, hyperlipidemia, myelodysplastic syndrome , and diabetes mellitus type II who initially presented for a presyncopal event and indeterminate troponins. He also was experiencing some shortness of breath and required oxygen by nasal cannula while at [facility]. He was subsequently found to have a hemoglobin of 7 on repeat laboratory tests in our hospital and blood transfusion is now underway. The severe anemia is likely secondary to the myelodysplastic syndrome. The patient also has a urinalysis that indicates a urinary tract infection and meets sepsis criteria with a lactic acid of 3.7 and procalcitonin of .44. He is now status post 2 L normal saline. It should be noted, that originally the patient was signed out to our team due to indeterminate troponins with an EKG that showed ST depression in V3 , V4, V5, and V6. #. Paroxysmal A. fib with RVR, recurred again this a.m.. We will use diltiazem IV bolus as needed and avoid trip possible. We will increase metoprolol to 25 by mouth twice a day. #. Reactive airways, new. There is no obvious pulmonary edema. Patient does have [id number] history of smoking. We will place him on prednisone 40 daily and continue albuterol nebs every 6 scheduled. #. Sepsis, present on admission, resolved. Source is possible UTI. Culture from [facility] indicates Escherichia coli, sensitivity pending. Continue ceftriaxone. #. Urinary tract infection, present on admission, improved. Plan as above. #. Probable acute on chronic systolic heart failure secondary to ischemic cardiomyopathy, improving. He does have some wheezing as well. We will use albuterol nebs every 6 hours scheduled and given an additional 20 of Lasix IV. Chest x-ray Saturday was unremarkable. #. NSTEMI, POA. History of CABG. improving. Patient's echo from the reveals fairly normal function with an EF severely reduced at 45%. The patient' s speech is troponin and now this is normalizing. We will continue medical management. #. Severe microcytic anemia, present on admission: Presumed secondary to MDS, no evidence of GI bleed. Improved. Hematocrit is up to 34 today.. -On admit hemoglobin 7, hematocrit 24.7, MCV 77.4. -Likely secondary to myelodysplastic syndrome. -Two units were transfused, hematocrit stable at 30. We will follow clinically. #. Chronic thrombocytopenia, POA. Stable. Thrombocytopenia remains stable with a platelet count of 30,000 today. #. Presyncopal event, present on admission, resolved with transfusion #. Myelodysplastic syndrome, present on admission: Stable. -Patients oncologist is at [facility], [place]. -The patient has a plan for initiation of chemotherapy in mid August. He understands the prognosis of 1-3 years based on his conversations with oncology today. Most important thing now is to expedite his chemotherapy treatment which was going to start sometime after August 27. #. Hypomagnesemia, present on admission, resolved.: #. Diabetes mellitus type II, present on admission: Controlled -A1c is pending -Humalog low-dose correctional scale -Discontinue metformin and use Lantus and correctional lispro #. Hypertension, present on admission: This is stable. Controlled current medical regimen. We will follow this some increased metoprolol. -On admit at scheduled for a hospital blood pressure was 117/76. -Continue metoprolol tartrate. #. Hyperlipidemia, present on admission: Stable. -Continue atorvastatin. #. Hypothyroidism, present on admission: Stable. -TSH and free T4 pending #. Severe debilitation. POA but worsening. He did fairly well physical therapy today was able to have assisted ambulation. We will await their assessment and recommendations.. He may need a transitional rehabilitation stay. DVT prophylaxis with heparin discontinued due to thrombocytopenia. Patient is admitted under inpatient status with expected length of stay greater than 2 midnights due to severity of presenting symptoms, risk of adverse event, and complexity of treatment plan. Resuscitation Status: DNR/DNI:Do Not Resuscitate/Intubate Judd Gee MD Aug 25, 2016 13:23
[2016-08-25 13:32] LABS: Mean Corpuscular Hemoglobin 23.8 pg (27.0-35.0); Mean Corpuscular Volume 77.8 fL (81-100)
--- NOTE | 2016-08-25 14:51 | NUR ---
A. Fib RVR Pt. went into sustained A. Fib RVR (HR 150s) in the late morning. He denied CP or palpitation. Dr. Gee was made aware. Diltiazem 10 mg IV x1 given, which brought HR down to A. Fib 100s-110s. Metoprolol PO dose was increased from 12.5 to 25 mg BID.
[2016-08-25] MEDS: predniSONE 20 mg Tablet PO SCH (14:56)
[2016-08-26 03:19] VITALS: BP 113/74; PULSE 84; RESP 18; O2SAT 97
[2016-08-26 03:31] LABS: Mean Corpuscular Volume 78.2 fL (81-100)
--- NOTE | 2016-08-26 03:59 | NUR ---
prog note pt. sweaty, having fever/chills, changed gown and bedding, later asking for more warm blankets. elevated blood glucose was 302, came down to 208 when rechecked.
[2016-08-26] MEDS: cefTRIAXone Inj 1,000 MG in Dextrose 5% Minibag Plus 50 ML IV SCH (08:16)
[2016-08-26 08:21] VITALS: BP 119/74; PULSE 74; RESP 16; O2SAT 95
[2016-08-26] MEDS: Furosemide 10 mg/mL 2 mL Inj IVPUSH SCH (08:25)
[2016-08-26] MEDS: Insulin LISPRO 300 Unit/3 mL Inj SUBQ SCH ×2 (08:26→12:25)
[2016-08-26] MEDS: predniSONE 20 mg Tablet PO SCH (08:26)
[2016-08-26 08:35] VITALS: PULSE 73; RESP 16; O2SAT 98
[2016-08-26] MEDS: Albuterol 1.25 mg/3 mL Inhalation Solution NEB SCH (08:35)
[2016-08-26 09:17] VITALS: PULSE 100
[2016-08-26] MEDS: Diltiazem Inj 125 MG in 0.9% Sodium Chloride 100 ML, Pharmacy To Mix 1 EA IV SCH (11:55)
[2016-08-26 12:06] VITALS: BP 130/79; PULSE 85; RESP 20; O2SAT 96
--- NOTE | 2016-08-26 13:30 | PCM.DIMED ---
Discharge Instructions Date of Service Aug 26, 2016 Dates of Hospitalization Aug 21, 2016 at 03:41 Discharge Diagnosis Discharge Diagnosis #. Paroxysmal atrial fibrillation with tachycardia, resolved. #. Reactive airways, new. Improved with albuterol #. Sepsis, present on admission, resolved. Source is possible UTI. #. Urinary tract infection, present on admission, improved. Plan as above. #. Probable acute on chronic systolic heart failure secondary to ischemic cardiomyopathy, resolved. #. NSTEMI, POA. History of CABG. improved. #. Severe anemia, improved with and after transfusion. (This relates to the myelodysplasia syndrome). #. Chronic thrombocytopenia, POA. Stable. (This relates to the myelodysplasia syndrome). #. Presyncopal event, present on admission, resolved with transfusion #. Myelodysplastic syndrome, stable. #. Hypomagnesemia, improved. #. Diabetes mellitus type II, stable. #. Hypertension, stable. #. Hyperlipidemia, stable.. #. Hypothyroidism, stable. #. Severe debilitation. POA and much improved. Diet Discharge Diet: No restrictions Activity Discharge Activity: Limited until seen by PCP Call your provider Call your provider for: Fever or Chills, Shortness of breath, Bleeding, Chest pain Patient Instructions Patient Instructions Please call your oncologist to schedule appointment and initiation of chemotherapy tomorrow. This is [place] [facility]. Follow-up Provider: Jason Flores MD Follow-up with PCP in: 1 week Judd Gee MD Aug 26, 2016 13:30
[2016-08-26] MEDS ORDERED: LEVO750T39 PO (13:34)
[2016-08-26] MEDS ORDERED: ALBU8.5H2 INHALATION (13:34)
--- NOTE | 2016-08-26 13:57 | NUR ---
Social Work Note: Discharge Data& Assessment: Per pt is medically ready to discharge. Jerad Real is a 76 year old male admitted on 08/21/2016 for symptomatic Low BP. Per pt is medically improved and ready for discharge. SW met with pt and pt family members at bedside to confirm discharge plan and assess for any unmet needs. Pt cleared by PT to return home when medically ready. Pt ambulating halls independently with his . Pt family to transport pt home today. Pt and pt family deny any other needs. MD denies any further orders. No other discharge needs identified. All updated and agreeable to plan. Plan: Per pt is medically ready to discharge home via POV. Pt and pt family deny any other needs. No other discharge needs identified. All updated and agreeable to plan. TRISTON Patel
--- NOTE | 2016-08-26 14:03 | PCM.DC.MED ---
Discharge Summary Date of Service Aug 26, 2016 Dates of Hospitalization Date of Hospital Admission Aug 21, 2016 at 03:41 Date of Discharge: Aug 26, 2016 Providers: Admitting Physician: Rodrigo Patterson MD Primary Care Physician: Jason Flores MD Attending Physician: Rodrigo Patterson MD Diagnosis at Time of Discharge Diagnosis at Time of Discharge #. Paroxysmal atrial fibrillation with tachycardia, resolved. #. Reactive airways, new. Improved with albuterol #. Sepsis, present on admission, resolved. Source is possible UTI. #. Urinary tract infection, present on admission, improved. Plan as above. #. Probable acute on chronic systolic heart failure secondary to ischemic cardiomyopathy, resolved. #. NSTEMI, POA. History of CABG. improved. #. Severe anemia, improved with and after transfusion. (This relates to the myelodysplasia syndrome). #. Chronic thrombocytopenia, POA. Stable. (This relates to the myelodysplasia syndrome). #. Presyncopal event, present on admission, resolved with transfusion #. Myelodysplastic syndrome, stable. #. Hypomagnesemia, improved. #. Diabetes mellitus type II, stable. #. Hypertension, stable. #. Hyperlipidemia, stable.. #. Hypothyroidism, stable. #. Severe debilitation. POA and much improved. Consultations None Procedures XRay, CTs & MRIs Chest x-ray from August [address] on the day of admission was unremarkable Cardiac Echo Impression nterpretation Summary The left ventricle is normal in size. The ejection fraction is estimated to be 40-45%. There is mild global hypokinesis of the left ventricle. There is basal inferior wall severe hypokinesis. There is basal posterolateral wall hypokinesis. The right ventricle grossly appears normal in size with probable normal systolic function. There is moderate mitral regurgitation. The ascending aorta is mildly enlarged. The patient was in sinus tachycardia with heart rates between 115-130 bpm during the exam. Procedure: A two-dimensional transthoracic echocardiogram with color flow and Doppler was performed. The study quality was technically adequate. There is no prior echocardiogram noted for this patient. A contrast injection of Definity was performed to improve assessment of LV function. The patient was in sinus tachycardia with heart rates between 115-130 bpm during the exam. Left Ventricle: The left ventricle is normal in size. There is normal left ventricular wall thickness. There is no thrombus. The ejection fraction is estimated to be 40-45%. There is mild global hypokinesis of the left ventricle. There is basal inferior wall severe hypokinesis. There is basal posterolateral wall hypokinesis. Diastolic function could not be accurately assessed due to tachycardia. Right Ventricle: The right ventricle grossly appears normal in size with probable normal systolic function. Atria: Borderline left atrial enlargement. Right atrial size is normal. The interatrial septum is intact with no evidence for an atrial septal defect. Mitral Valve: The mitral valve leaflets appear borderline thickened, but open well. The mitral valve leaflets are mildly calcified. There is mild mitral annular calcification. The tip of the mitral leaflet is calcified. There is moderate mitral regurgitation. Aortic Valve: The aortic valve is trileaflet. There is mild aortic valve sclerosis. There is no aortic valve stenosis. No aortic regurgitation is present. Tricuspid Valve: The tricuspid valve is not well visualized, but is grossly normal. There is trace tricuspid regurgitation. Pulmonary artery pressures cannot be estimated because of the lack of a measurable TR jet velocity. Pulmonic Valve: The pulmonic valve leaflets are thin and pliable; valve motion is normal. There is trace pulmonic regurgitation. Great Vessels: The aortic root is normal size. The ascending aorta is mildly enlarged. The pulmonary artery is normal size. The IVC is of normal diameter and collapses greater than 50% with a sniff. This suggests a low right atrial pressure of 3 mm Hg. Pericardium/ Pleura There is no pericardial effusion. There is an anterior echo-free space consistent with a fat pad. There is no pleural effusion. Invasive Procedures Blood transfusion of the time of admit, one unit. Brief History This is a 76-year-old male with past history significant for coronary artery disease status post CABG in 1997, hyperlipidemia, hypertension, myelodysplastic syndrome with planned start date of chemo on August 27, and diabetes mellitus type II who presents as a direct transfer from [facility] after a presyncopal episode.. The patient states that this evening he was visiting his who was admitted to [facility]. While sitting in a chair he began to feel lightheaded, and became diaphoretic. He states this is the second times this has occurred over the last 2 weeks. ER notes states that his eyes rolled back in his head and he had a presyncopal event. Associated symptoms: Nausea. He denies any loss of consciousness. He denies any chest pain or pressure, shortness of breath, vomiting, dysuria, hematuria, increased urinary frequency, Initial vitals at [facility] BP 151/58, heart rate 118, respiratory rate 22, satting 94% on room air, temperature 98.3 Fahrenheit. Initial laboratory values from [facility]: WBC 5.3, hemoglobin 8.2 , hematocrit 26.4, MCV 72. D-dimer was 10.88. BNP 322. Glucose 140, BUN 20, creatinine 1.3, sodium 136, potassium 4.1, chloride 99, carbon dioxide 21, calcium 8.6, total protein 9.8, albumin 2.7, total bilirubin 0.6, alkaline phosphatase 51, AST 28, ALT 22, CPK 331, magnesium 1.6, CK-MB 1.7, troponin I 1.13 with a normal reference range of 0.00-1.5 . An ABG was performed at [facility] due to transient hypoxia which showed a pH of 7.42, PCO2 of 30.5, PO2 of 135, HCO3 of 19.9. Urinalysis showed positive nitrites, 2 + blood, positive leukocyte esterase, WBCs of 15-25, and many bacteria. EKG showed sinus tachycardia with rate of 115, possible left atrial enlargement , possible inferior infarct of indeterminate age, and ST depression in leads V3 , V4, V5, and V6. Chest x-ray was described as no acute disease. CT angio was performed and showed no pulmonary embolus. The images are not available for review at this time and verbal reports of these images were provided to me by the emergency department physician as the written reports were not included in the chart received from [facility]. Repeat laboratory testing at [facility] showed a hemoglobin of 7.0 , hematocrit of 24.7, platelet count of 23. Lactic acid of 3.7. Magnesium of 1.5. Troponin of 0.037. In the ED at [place] he was provided with a bolus of normal saline and given 1 g of ceftriaxone for a urinary tract infection. Hospital Course This is a 76-year-old male with past medical history significant for coronary disease status post CABG, hypertension, hyperlipidemia, myelodysplastic syndrome , and diabetes mellitus type II who initially presented for a presyncopal event and indeterminate troponins. He also was experiencing some shortness of breath and required oxygen by nasal cannula while at [facility]. He was subsequently found to have a hemoglobin of 7 on repeat laboratory tests in our hospital and blood transfusion is now underway. The severe anemia is likely secondary to the myelodysplastic syndrome. The patient also has a urinalysis that indicates a urinary tract infection and meets sepsis criteria with a lactic acid of 3.7 and procalcitonin of .44. He is now status post 2 L normal saline. It should be noted, that originally the patient was signed out to our team due to indeterminate troponins with an EKG that showed ST depression in V3 , V4, V5, and V6. #. Paroxysmal A. fib with RVR, recurred again this a.m.. We will use diltiazem IV bolus as needed and avoid trip possible. We will increase metoprolol to 25 by mouth twice a day. #. Reactive airways, new. There is no obvious pulmonary edema. Patient does have [id number] history of smoking. We will place him on prednisone 40 daily and continue albuterol nebs every 6 scheduled. #. Sepsis, present on admission, resolved. Source is possible UTI. Culture [facility] indicates Escherichia coli, sensitivity pending. Continue ceftriaxone. #. Urinary tract infection, present on admission, improved. Plan as above. #. Probable acute on chronic systolic heart failure secondary to ischemic cardiomyopathy, improving. He does have some wheezing as well. We will use albuterol nebs every 6 hours scheduled and given an additional 20 of Lasix IV. Chest x-ray Saturday was unremarkable. #. NSTEMI, POA. History of CABG. improving. Patient's echo from the reveals fairly normal function with an EF severely reduced at 45%. The patient' s speech is troponin and now this is normalizing. We will continue medical management. #. Severe microcytic anemia, present on admission: Presumed secondary to MDS, no evidence of GI bleed. Improved. Hematocrit is up to 34 today.. -On admit hemoglobin 7, hematocrit 24.7, MCV 77.4. -Likely secondary to myelodysplastic syndrome. -Two units were transfused, hematocrit stable at 30. We will follow clinically. #. Chronic thrombocytopenia, POA. Stable. Thrombocytopenia remains stable with a platelet count of 30,000 today. #. Presyncopal event, present on admission, resolved with transfusion #. Myelodysplastic syndrome, present on admission: Stable. -Patients oncologist is at [facility]. -The patient has a plan for initiation of chemotherapy in mid August. He understands the prognosis of 1-3 years based on his conversations with oncology today. Most important thing now is to expedite his chemotherapy treatment which was going to start sometime after August 27. #. Hypomagnesemia, present on admission, resolved.: #. Diabetes mellitus type II, present on admission: Controlled -A1c is pending -Humalog low-dose correctional scale -Discontinue metformin and use Lantus and correctional lispro #. Hypertension, present on admission: This is stable. Controlled current medical regimen. We will follow this some increased metoprolol. -On admit at scheduled for a hospital blood pressure was 117/76. -Continue metoprolol tartrate. #. Hyperlipidemia, present on admission: Stable. -Continue atorvastatin. #. Hypothyroidism, present on admission: Stable. -TSH and free T4 pending #. Severe debilitation. POA but worsening. He did fairly well physical therapy today was able to have assisted ambulation. We will await their assessment and recommendations.. He may need a transitional rehabilitation stay. DVT prophylaxis with heparin discontinued due to thrombocytopenia. Patient is admitted under inpatient status with expected length of stay greater than 2 midnights due to severity of presenting symptoms, risk of adverse event, and complexity of treatment plan. Exam Vital Signs (Last) Date Time Temp Pulse Resp B/P Pulse Ox O2 Delivery O2 Flow Rate FiO2 08/26/16 12:06 36.4 85 20 130/79 96 Room Air 08/25/16 07:32 2.00 Exam Patient was seen and examined on the day of discharge Test 08/21/16 05:00 08/21/16 06:10 08/21/16 21:40 08/22/16 04:40 Neutrophils (%) (Auto) 31.6% (40-74) Lymphocytes (%) (Auto) 39.3% (14-46) Monocytes (%) (Auto) 23.6% (4-12) Eosinophils (%) (Auto) 0.2% (0-5) Basophils (%) (Auto) 0.9% (0-3) Hematology Comments Hemoglobin A1c 6.4% (4.8-5.6) Magnesium Level 1.5mg/dL (1.6-2.6) Procalcitonin 0.44ng/mL (0.00-0.08) Thyroid Stimulating Hormone (TSH) 2.050uIU/mL (0.450-4.500) Free Thyroxine 1.37ng/dL (0.82-1.77) Urine Color Yellow (YELLOW) Urine Appearance Clear (CLEAR,HAZY) Urine pH 5.5 (5.0-8.0) Urine Specific [place] 1.010 (1.003-1.035) Urine Protein 30mg/dL (NEG,TRACE) Urine Glucose (UA) Negativemg/dL (NEGATIVE) Urine Ketones Negativemg/dL (NEGATIVE) Urine Occult Blood Moderate (NEGATIVE) Urine Nitrite Negative (NEGATIVE) Urine Bilirubin Negative (NEGATIVE) Urine Urobilinogen Normalmg/dL (NORMAL) Urine Leukocyte Esterase Trace (NEGATIVE) Urine RBC 0-2/hpf (0-2) Urine WBC >50/hpf (0-5) Urine Epithelial Cells Few/hpf (NONE-MOD) Urine Crystals None seen (NONE SEEN) Urine Bacteria Few/hpf (NONE-FEW) Urine Hyaline Casts None/lpf (NONE) Urine Granular Casts None seen (NONE SEEN) Urine Waxy Casts None seen (NONE SEEN) Urine Red Blood Cell Casts None seen (NONE SEEN) Urine White Blood Cell Casts None seen (NONE SEEN) Urine Mucus None seen (None Seen) Urine Trichomonas None seen (NONE SEEN) Urine Yeast None (NONE SEEN) Urinalysis Comment None Urine Culture Reflexed Indicated Lactic Acid Level 2.2mmol/L (0.4-2.0) Triglycerides Level 63mg/dL (0-149) Cholesterol Level 60mg/dL (100-199) LDL Cholesterol, Calculated 23.400mg/dL (0-99) VLDL Cholesterol 12.600mg/dL HDL Cholesterol 24mg/dL (>39) Cholesterol/HDL Ratio 2.50 (0.0-4.4) Test 08/23/16 10:15 08/24/16 14:40 08/26/16 03:15 Total Bilirubin 0.5mg/dL (0.0-1.2) Aspartate Amino Transf (AST/SGOT) 31U/L (0-50) Alanine Aminotransferase (ALT/SGPT) 14U/L (0-44) Alkaline Phosphatase 37U/L (25-160) Total Protein 7.8g/dL (6.4-8.4) Albumin 2.3g/dL (3.4-5.0) Troponin T 0.161ug/L (0.0-0.011) White Blood Count 3.2th/mm3 (3.8-10.1) Red Blood Count 4.58mil/mm3 (4.40-5.80) Hemoglobin 11.0g/dL (13.8-17.2) Hematocrit 35.8% (41.0-50.0) Mean Corpuscular Volume 78.2fL (81-100) Mean Corpuscular Hemoglobin 24.0pg (27.0-35.0) Mean Corpuscular Hemoglobin Concent 30.7% (32.0-37.0) Red Cell Distribution Width 25.5% (12.3-15.4) Platelet Count 30bil/L (150-400) Sodium Level 130mEq/L (134-144) Potassium Level 4.3mEq/L (3.5-5.2) Chloride Level 95mEq/L (97-108) Carbon Dioxide Level 24mmol/L (18-29) Blood Urea Nitrogen 28mg/dL (8-27) Creatinine 0.68mg/dL (0.76-1.27) Estimat Glomerular Filtration Rate 121mL/min (>59) Glucose Level 198mg/dL (60-99) Calcium Level 8.7mg/dL (8.5-10.1) Microbiology Results Blood cultures 2 and urine cultures are negative. A urine culture from [facility] revealed pansensitive Escherichia coli. Discharge Medications Discharge Medications Albuterol HFA (Proair HFA) 8.5 Gm Hfa.aer.ad 2 PUFFS INHALATION QID Prescribed by: DANYEL CHAMPION MD Amlodipine (Amlodipine) 10 Mg Tablet 10 MG PO DAILY (Reported) Aspirin (Aspirin) 81 Mg Tablet 81 MG PO QAM (Reported) Atorvastatin (Lipitor) 10 Mg Tab 80 MG PO HS (Reported) Benzonatate (Benzonatate) 100 Mg Capsule 100 MG PO QID (Reported) Glipizide/Metformin 2.5-500 mg (Glipizide/Metformin 2.5-500 mg) 1 Each Tablet 1 TABLET PO BIDWM (Reported) Levofloxacin (Levofloxacin) 750 Mg Tablet 750 MG PO DAILY Prescribed by: DANYEL CHAMPION MD Levothyroxine (Levothyroxine) 75 Mcg Tablet 75 MCG PO QAM (Reported) Metoprolol Tartrate (Metoprolol Tartrate) 25 Mg Tablet 50 MG PO BID (Reported) Omeprazole (Omeprazole) 20 Mg Capsule.dr 20 MG PO QAM (Reported) Ranitidine (Ranitidine) 150 Mg Capsule 150 MG PO BIDWM (Reported) Tamsulosin (Flomax) 0.4 Mg Capsule 0.4 MG PO HS (Reported) As needed Hydrocodone-Acetaminophen 5-325 mg (Hydrocodone-Acetaminophen 5-325 mg) 1 Each Tablet 1 TABLET PO Q4H PRN PRN For Pain (Reported) Followup Plan Disposition: Home, with family Discharge Diet: No restrictions Discharge Activity: Limited until seen by PCP Patient Instructions Please call your oncologist to schedule appointment and initiation of chemotherapy tomorrow. This is [place] [facility]. Follow-up Provider: Jason Flores MD Follow-up with PCP in: 1 week Time spent 16 Danyel hCampion MD Aug 26, 2016 14:03
--- NOTE | 2016-08-27 11:53 | NUR ---
Palliative Care Follow-up Call08/27/1710:50AM This filing writer called pt. to see how he is feeling since his discharge from [facility] yesterday and also to inquire about whether he would like to see Palliative Care provider for outpatient palliative care services. Pt. is 76 year old man with history of CAD, HTN and also myelodysplastic syndrome. He was at [facility] for treatment of low blood pressure. Pt. shared that he will be starting chemotherapy today with [facility] in [place], [place]. This filing writer offered to call pt. in 2 weeks to see if he wants to arrange an outpatient visit and pt. was agreeable to this followup plan. TRISTON Osborne, [facility].
== END 2016-08-26 14:05 | disposition home or self-care (01) | DRG 871 ==
LOC: PCC 03:41 → OBSVTOIN 03:41 → INTOOBSV 03:41
PROVIDERS: ADMIT Hospitalist; ATTEND Hospitalist
PROC: 30233N1 Transfusion of Nonautologous Red Blood Cells into Peripheral Vein, Percutaneous Approach (ICD-10-PCS; principal; 2016-08-21)
DX: A41.9 Sepsis, unspecified organism (principal); I50.23 Acute on chronic systolic (congestive) heart failure; I21.4 Non-ST elevation (NSTEMI) myocardial infarction; N39.0 Urinary tract infection, site not specified; I48.0 Paroxysmal atrial fibrillation; D46.9 Myelodysplastic syndrome, unspecified; E11.9 Type 2 diabetes mellitus without complications; I10 Essential (primary) hypertension; E78.5 Hyperlipidemia, unspecified; E03.9 Hypothyroidism, unspecified; I25.10 Atherosclerotic heart disease of native coronary artery without angina pectoris; B96.20 Unspecified Escherichia coli [E. coli] as the cause of diseases classified elsewhere; Z95.1 Presence of aortocoronary bypass graft; Z66 Do not resuscitate; D69.6 Thrombocytopenia, unspecified; Z87.891 Personal history of nicotine dependence